=== PATIENT | female | born 1995 | race Caucasian/White ===

== ENCOUNTER 2018-05-17 10:24 | Outpatient (CLI) | payer MEDICAID ==
[~2018-05-17] VITALS: Ht 154.9 cm; Wt 64.0 kg
[2018-05-17 15:07] VITALS: BP 107/58
[2018-05-17] MEDS ORDERED: TRAMADOL HCL50 MG ORAL (15:07)
[2018-05-17] MEDS ORDERED: ZOFRAN ODT8 MG ORAL (15:07)
[2018-05-17] MEDS ORDERED: BCP (15:07)
--- NOTE | 2018-05-18 14:38 | GI Initial Consult Note ---
History of Present Illness General Date patient seen: May 17, 2018 Time patient seen: 14:15 Referring physician: O Reason for Consultation: ABDOMINAL PAIN Present Illness HPI 23 year old female patient, with no known prior medical history presents today with c/o abdominal pain over the course of 2 years. In addition, the patient symptomatically states she has nausea and vomiting, YEH, chills and constipation. She complains of abdominal bloating, +BRBPR and has noticed black stools in her BM. Pt had negative CT AP done in December 2017. Labs reviewed ; WNL. The patient underwent a treatment for ulcers for 30 days which had no effect on her pain. She states she has loss over 15 lbs. No signs of abuse or neglect. Patient is not fall risk. Home Meds Reported Medications [Bcp] No Conflict Check 05/17/18 Ondansetron Odt* (ZOFRAN ODT*) 8 Mg Tab.rapdis, 8 MG ORAL Q6H PRN for Nausea & Vomiting, #30 TAB 05/17/18 Tramadol Hcl* (ULTRAM*) 50 Mg Tablet, 50 MG ORAL Q6H PRN for For Pain, #30 TAB 0 Refills 05/17/18 Med list reviewed/reconciled: Yes Allergies: Coded Allergies: PENICILLINS (Verified Allergy, Intermediate, 05/17/18) NAUSEA CODEINE (Verified Adverse Reaction, Intermediate, 05/17/18) NAUSEA Patient History History Provided By: Patient, Medical Record [facility] Narrative UTI Past Surgical History: NONE Social History: Reports: alcohol use - social; Denies: smoking, drug use, other Review of Systems All Other Systems: negative except mentioned in HPI Physical Exam Vital Signs Date Time Temp Pulse Resp B/P (MAP) Pulse Ox O2 Delivery O2 Flow Rate FiO2 05/17/18 15:07 97.6 59 16 107/58 98 Sp02 EP Interpretation: reviewed, normal General Appearance: well appearing, no apparent distress, alert Head: normocephalic EENT: PERRL/EOMI, normal ENT inspection Neck: supple Respiratory: normal breath sounds, no respiratory distress Cardiovascular: normal rate Gastrointestinal: normal inspection, non tender, soft, normal bowel sounds, non -distended Rectal: deferred Genitourinary: no CVA tenderness Musculoskeletal: normal inspection, back normal Neurologic: normal inspection, alert, oriented x3, responsive Psychiatric: normal inspection, judgement/insight normal, memory normal Skin: normal inspection, normal color, no rash, warm/dry, palpation normal, well hydrated Lymphatic: normal inspection, no adenopathy GI: Plan Problems: (1) Abdominal pain of unknown cause (2) Weight loss (3) Nausea & vomiting (4) Bloating (5) Melena (6) Rectal bleed (7) GERD (gastroesophageal reflux disease) Plan Bentyl 20mg PRN [employer]ICER F/U r/o endometriosis Rx Miralax RTC x [address] Gruber. Thank you for this patient referral. The patient was seen and examined at bedside and all new and available data was reviewed in the patients chart. I agree with the above findings, impression and plan. (Patient seen earlier today. Signature stamp does not reflect patient encounter time.). - MD Puja ElderNorthern Cochise Community HospitalEddie STORAGE GARAGE ATTENDANT May 18, 2018 14:38
== END 2018-05-17 10:54 | disposition home or self-care (01) ==
LOC: PAN 10:24
DX: R10.9 Unspecified abdominal pain (principal); R11.2 Nausea with vomiting, unspecified; R51 Headache; R68.83 Chills (without fever); K59.00 Constipation, unspecified; R14.0 Abdominal distension (gaseous); Z88.6 Allergy status to analgesic agent; Z88.0 Allergy status to penicillin; R63.4 Abnormal weight loss; K92.1 Melena
CPT/HCPCS: 99202